=== PATIENT | female | born 1940 | race Caucasian/White ===

== ENCOUNTER → 2016-10-21 | Outpatient (CLI) | payer MEDICARE, OTHER | LOC: MC.RAD 13:05 | DX: Z12.31 Encounter for screening mammogram for malignant neoplasm of breast (principal) ==

== ENCOUNTER → 2017-12-31 | Outpatient (CLI) | payer MEDICARE, OTHER | LOC: MC.RAD 12:46 | DX: Z12.31 Encounter for screening mammogram for malignant neoplasm of breast (principal) ==

== ENCOUNTER → 2019-01-20 | Outpatient (CLI) | payer MEDICARE, OTHER | LOC: MC.RAD 10:00 | DX: Z12.31 Encounter for screening mammogram for malignant neoplasm of breast (principal) ==

== ENCOUNTER 2019-09-14 16:35 | Emergency (ER) | payer MEDICARE, OTHER ==
[~2019-09-14] VITALS: Ht 162.6 cm; Wt 56.8 kg
[2019-09-14] MEDS ORDERED: SYNTHROID0.075 MG/T PO (17:08)
[2019-09-14 18:33] LABS: COLLECTION METHOD CLEAN CATCH
[2019-09-14 18:48] LABS: MUCOUS Present /lpf; PH 5 (5-8); SQUAMOUS EPITHELIAL 0-2 /hpf; URINE APPEARANCE Clear; URINE BACTERIA Rare /hpf; URINE BILIRUBIN Negative (NEGATIVE); URINE BLOOD 2+ (NEGATIVE); URINE COLOR Yellow; URINE GLUCOSE Negative (NEGATIVE); URINE KETONE Negative (NEGATIVE); URINE LEUKOCYTE ESTERASE Trace (NEGATIVE); URINE NITRATE Negative (NEGATIVE); URINE PROTEIN(semi-quant) Negative (NEGATIVE); URINE UROBILINOGEN Negative (NEGATIVE)
[2019-09-14] MEDS ORDERED: NORCO 325 MG-51 TAB PO (18:52)
[2019-09-14] MEDS ORDERED: ZOFRAN ODT4 MG PO (18:52)
[2019-09-14 19:10] VITALS: BP 142/76; PULSE 88; TEMP 97.6
== END 2019-09-14 19:10 | disposition home or self-care (01) ==
LOC: COL.ER 16:35
PROVIDERS: Physician Assistant
DX: S42.002A Fracture of unspecified part of left clavicle, initial encounter for closed fracture (principal); S01.01XA Laceration without foreign body of scalp, initial encounter; W17.89XA Other fall from one level to another, initial encounter; Y92.009 Unspecified place in unspecified non-institutional (private) residence as the place of occurrence of the external cause

== ENCOUNTER → 2020-01-23 | Outpatient (CLI) | payer MEDICARE, OTHER ==
[~2020-01-23] MED LIST: NORCO 325 MG-51 TAB PO; SYNTHROID0.075 MG/T PO; ZOFRAN ODT4 MG PO
== END ==
LOC: MC.RAD 10:43
DX: Z12.31 Encounter for screening mammogram for malignant neoplasm of breast (principal)

== ENCOUNTER → 2021-03-20 | Outpatient (CLI) | payer MEDICARE, OTHER | LOC: MC.RAD 09:45 | DX: Z12.31 Encounter for screening mammogram for malignant neoplasm of breast (principal) ==